=== PATIENT | female | born 1985 | race Caucasian/White ===

== ENCOUNTER 2016-12-19 09:11 | Emergency (ER) | payer OTHER ==
[~2016-12-19] VITALS: Ht 167.6 cm; Wt 61.2 kg
[2016-12-19 09:21] VITALS: BP 120/78
== END 2016-12-19 11:00 | disposition left against medical advice (07) ==
LOC: ER 09:11
DX: R10.9 Unspecified abdominal pain (principal); R11.2 Nausea with vomiting, unspecified; Z53.21 Procedure and treatment not carried out due to patient leaving prior to being seen by health care provider

== ENCOUNTER 2016-12-21 06:30 | Emergency (ER) | payer SELFPAY ==
[~2016-12-21] VITALS: Ht 167.6 cm; Wt 61.2 kg
[2016-12-21 06:33] VITALS: BP 127/78
== END 2016-12-21 07:26 | disposition left against medical advice (07) ==
LOC: ER 06:30
DX: R10.9 Unspecified abdominal pain (principal); R11.2 Nausea with vomiting, unspecified; Z53.21 Procedure and treatment not carried out due to patient leaving prior to being seen by health care provider

== ENCOUNTER 2023-12-20 12:09 | Inpatient (IN) | payer OTHER ==
[~2023-12-20] VITALS: Ht 167.6 cm; Wt 88.0 kg
[2023-12-20 13:35] LABS: Urine Bacteria None Seen /hpf (None Seen)
[2023-12-20] MEDS: SODIUM CHLORIDE 0.9% 1,000 ML IV ONE (14:09)
[2023-12-20] MEDS: KETOROLAC TROMETH 30 MG/ML 1ML VIAL IV ONE (14:10)
[2023-12-20 14:21] LABS: Urine Blood Negative /uL (Negative); Urine Budding Yeast OCCASIONAL /hpf (None Seen); Urine Clarity Clear (Clear); Urine Color Yellow (Yellow); Urine Mucus FEW (None Seen); Urine Protein, UAD 1+ (Negative); Urine Specific Gravity 1.025 (1.001-1.035); Urine Urobilinogen Normal (Negative); Urine WBC 4 /hpf (0 - 5); Urine pH 6.5 (5.0-9.0)
[2023-12-20 14:35] LABS: Basophils # (auto) 0.1 10 ^3/uL (0-0.2); Basophils % (auto) 0.8 % (0.0-2.0); Eosinophils # (auto) 0.1 10 ^3/uL (0-0.8); Eosinophils % (auto) 1.3 % (0.0-7.0); Hematocrit 35.3 % (36.0-46.0); Lymphocytes # (auto) 1.6 10 ^3/uL (0.4-5.4); Lymphocytes % (auto) 20.3 % (10.0-50.0); Mean Corpuscular Hemoglobin 27.4 pg (28.0-32.0); Mean Corpuscular Hgb Conc. 31.2 g/dL (32.0-36.0); Mean Corpuscular Volume 87.8 fL (80.0-100.0); Monocytes # (auto) 0.4 10 ^3/uL (0-1.3); Monocytes % (auto) 4.8 % (0.0-12.0); Neutrophils # (auto) 5.6 10 ^3/uL (1.6-8.6); Neutrophils % (auto) 72.8 % (37.0-80.0); Nucleated Red Blood Cells % 0.1 %; Red Blood Cells 4.02 10^6/uL (4.0-5.20); Red Cell Distribution Width 20.4 % (11.8-14.3); White Blood Cell 7.7 10^3/uL (4.4-10.8)
[2023-12-20 14:44] LABS: Chloride 106 mmol/L (98-107); Potassium 3.7 mmol/L (3.5-5.1); Sodium 139 mmol/L (136-145)
[2023-12-20 14:45] LABS: Anion Gap 6 (5-15); Calcium 9.3 mg/dL (8.7-10.4); Carbon Dioxide 27 mmol/L (20-30)
[2023-12-20] MEDS: ONDANSETRON HCL 4 MG/2 ML VIAL IV ONE (14:45)
[2023-12-20] MEDS: MORPHINE SULFATE 4 MG/ML SYR/VIAL IV ONE ×2 (14:46→18:04)
[2023-12-20 14:50] LABS: BUN/Creatinine Ratio 14.7 (10.0-20.0); Blood Urea Nitrogen 10 mg/dL (9-23); Glucose 91 mg/dL (74-106)
[2023-12-20] MEDS: IOHEXOL 300 MG/ML 100ML BOTTLE IJ ONE (17:49)
[2023-12-20] MEDS: ceFAZolin 2 GM/D5W50ml 50 ML IV ONE (20:05)
[2023-12-20 20:10] VITALS: PULSE 93; RESP 16; O2SAT 93
[2023-12-20] MEDS: metroNIDAZOLE 500MG/100ML 100 ML IV ONE (20:43)
[2023-12-20] MEDS ORDERED: DOCUSATE SOD 100 MG CAP PO PRN (23:00)
[2023-12-20] MEDS ORDERED: ACETAMINOPHEN 325 MG TAB PO PRN (23:00)
[2023-12-20] MEDS: SODIUM CHLORIDE 0.9% 1,000 ML IV SCH (23:00)
[2023-12-20 23:15] VITALS: PULSE 93; RESP 19; O2SAT 95
[2023-12-20] MEDS ORDERED: NITROGLYCERIN 0.4 MG SL TAB SL PRN (23:45)
[2023-12-21] VITALS (7 sets, daily range): BP systolic 108–133; BP diastolic 71–93; PULSE 78–110; RESP 16–18; TEMP 97.4–98.4; O2SAT 92–94
[2023-12-21] MEDS: HYDROmorphone HCL 2 MG/ML VL/or syr IV PRN (00:50)
[2023-12-21] MEDS: ONDANSETRON HCL 4 MG/2 ML VIAL IV PRN (03:27)
[2023-12-21 04:32] LABS: Basophils # (auto) 0 10 ^3/uL (0-0.2); Basophils % (auto) 0.6 % (0.0-2.0); Eosinophils # (auto) 0.1 10 ^3/uL (0-0.8); Eosinophils % (auto) 2.2 % (0.0-7.0); Hematocrit 30.2 % (36.0-46.0); Hemoglobin 9.6 g/dL (12.2-16.2); Lymphocytes # (auto) 1.5 10 ^3/uL (0.4-5.4); Lymphocytes % (auto) 21.1 % (10.0-50.0); Mean Corpuscular Hemoglobin 27.9 pg (28.0-32.0); Mean Corpuscular Hgb Conc. 31.9 g/dL (32.0-36.0); Mean Corpuscular Volume 87.6 fL (80.0-100.0); Monocytes # (auto) 0.4 10 ^3/uL (0-1.3); Monocytes % (auto) 5.4 % (0.0-12.0); Neutrophils # (auto) 4.9 10 ^3/uL (1.6-8.6); Neutrophils % (auto) 70.7 % (37.0-80.0); Red Blood Cells 3.45 10^6/uL (4.0-5.20); Red Cell Distribution Width 19.8 % (11.8-14.3); White Blood Cell 6.9 10^3/uL (4.4-10.8)
[2023-12-21 04:49] LABS: Alanine Aminotransferase 46 U/L (7-40); Albumin 3.7 g/dL (3.2-4.8); Alkaline Phosphatase 161 U/L (46-116); Anion Gap 5 (5-15); Aspartate Aminotransferase 45 U/L (13-40); BUN/Creatinine Ratio 15.2 (10.0-20.0); Bilirubin, Total 0.5 mg/dL (0.2-1.0); Blood Urea Nitrogen 10 mg/dL (9-23); Calcium 8.9 mg/dL (8.7-10.4); Carbon Dioxide 28 mmol/L (20-30); Chloride 108 mmol/L (98-107); Glucose 102 mg/dL (74-106); Potassium 3.4 mmol/L (3.5-5.1); Sodium 141 mmol/L (136-145)
[2023-12-21] MEDS: metroNIDAZOLE 500MG/100ML 100 ML IV SCH (05:21)
[2023-12-21] MEDS ORDERED: PANC3600 PO (10:50)
[2023-12-21] MEDS ORDERED: POM PO (10:50)
[2023-12-21] MEDS ORDERED: GABA-1250 PO (10:50)
[2023-12-21] MEDS: PANTOPRAZOLE 40 MG TAB PO ONE (13:27)
[2023-12-21] MEDS: HYDROcodone-ACET 5/325MG TAB PO PRN (22:09)
[2023-12-22 00:56] VITALS: BP 138/85; PULSE 71; RESP 18; TEMP 98; O2SAT 99
[2023-12-22 01:14] VITALS: PULSE 78; RESP 18; O2SAT 94
[2023-12-22 05:00] VITALS: BP 120/79; PULSE 93; RESP 18; TEMP 98.1; O2SAT 94
[2023-12-22] MEDS: PANTOPRAZOLE 40 MG TAB PO SCH (06:03)
[2023-12-22 06:52] LABS: Amphetamine Screen, Urine Neg (NEGATIVE); Barbiturate Scree,Urine Neg (NEGATIVE); Benzodiazephine Screen, Urine Neg (NEGATIVE); Cannabinoid Screen, Urine Pos (NEGATIVE); Cocaine Screen, Urine Neg (NEGATIVE); Opiate Scree,Urine Pos (NEGATIVE); Phencyclidine Screen, Urine Neg (NEGATIVE)
[2023-12-22 08:15] VITALS: PULSE 83; RESP 17; O2SAT 94
[2023-12-22] MEDS ORDERED: LEVO500T91 PO (08:31)
[2023-12-22] MEDS ORDERED: METR-344 PO (08:31)
[2023-12-22] MEDS ORDERED: HYDR-4902 PO (08:31)
[2023-12-22 09:00] VITALS: BP 142/94; PULSE 83; RESP 17; TEMP 97.9; O2SAT 94
[2023-12-22 10:55] VITALS: BP 142/94; PULSE 83; RESP 17; TEMP 97.9; O2SAT 94
== END 2023-12-22 11:54 | disposition home or self-care (01) | DRG 640 ==
LOC: ER 12:09 → OVERFLOW 23:37 → CENTRAL 12-21 06:20
PROVIDERS: ADMIT Nurse Practitioner Family; ATTEND Nurse Practitioner Family
DX: E86.0 Dehydration (principal); K55.039 Acute (reversible) ischemia of large intestine, extent unspecified; K86.1 Other chronic pancreatitis; K44.9 Diaphragmatic hernia without obstruction or gangrene; Z90.49 Acquired absence of other specified parts of digestive tract; Z79.899 Other long term (current) drug therapy
CPT/HCPCS: 36415; 74177; 80048; 80053; 80307; 81001; 81025; 83690; 85025; 96361; 96365; 96367; 96375; 96376; G0378; J1885; J2405; J3490